=== PATIENT | female | born 1940 | race Caucasian/White ===

== ENCOUNTER 2017-08-30 05:31 | Day surgery (SDC) | payer OTHER, BC ==
[~2017-08-30] VITALS: Ht 157.5 cm; Wt 52.2 kg
--- NOTE | ~2017-08-30 | O ---
[facility] [place] [address] OPERATIVE REPORT Name: DAMASO SWEENEY Room #: [facility]..#: [id number] Admission: 08/30/17 Attend Phys: Yazan Alexander MD Discharge: 08/30/17 Date of : 38 Report #: [id number] THIS REPORT FOR: //name// CC: Zhao Alexander DATE OF SERVICE: 08/30/2017 PREOPERATIVE DIAGNOSIS: Lesion of left lower lid. POSTOPERATIVE DIAGNOSIS: Lesion of left lower lid. PROCEDURE: Excision of lesion of left lower lid with frozen sections and myocutaneous flap repair of full thickness defect. SURGEON: Yazan Alexander M.D. MACHINIST SUPERVISOR OUTSIDE: None. ANESTHESIA: MAC. COMPLICATIONS: None. INDICATIONS FOR SURGERY: This pleasant 77-year-old woman has 2 different sites in her left lower lid that appears suspicious for being frankly neoplastic. The more medially base lesion is right on the eyelid margin and is associated with madarosis. The other lesion is 5-6 mm below this and is primarily located epidermally. She presents today for excision of the lesions with frozen sections and subsequent repair of that defect. Informed consent was obtained to include but not limit to the potential risk for loss of vision, bleeding, infection, failure to improve the problem, the potential need for further surgery or treatment. DESCRIPTION OF PROCEDURE: The patient was taken to the operating room where 2% Xylocaine with epinephrine mixed with equal parts of 0.75% Marcaine with Wydase was administered transcutaneously and transconjunctivally to the left lower lid, the left cheek, the left medial canthus and the left lateral canthus. The patient was subsequently prepped and draped in the usual sterile fashion. A fine tip skin marking pen was then utilized to outline a pentagonal wedge resection in the lateral left lower lid. The incisions were then made perpendicularly across the eyelid margin and drawn down to a point in the premalar tissues. This specimen was then oriented on a drawing for the waiting pathologist. Hemostasis was then achieved with diligent pinpoint monopolar cautery. The pathologist snap froze that specimen examining the medial and lateral margins en face. She found that the lesion laterally based she felt was [address] [address] OPERATIVE REPORT Name: DAMASO SWEENEY Room #: [facility].#: [id number] Admission: 08/30/17 Attend Phys: Yazan Alexander MD Discharge: 08/30/17 Date of : 38 Report #: [id number] most likely inflammatory not frankly neoplastic. She did feel that the lesion that was more medial placed on the lid margin itself was more likely to be an invasive neoplasm. An additional 2 mm of tissue was then taken over the medial aspect of the lid and drawn down to a point in the premalar tissues. The specimen was then oriented on a drawing for the waiting pathologist. Hemostasis was achieved in the field with monopolar cautery. The pathologist returned that the previously based eyelid margin lesion now appeared to be clear. A myocutaneous flap was then developed rotating from lateral to medial. Hemostasis was then re-achieved. The flap was then advanced and secured with multiple interrupted deep 5-0 Vicryl sutures. The tarsal plate was reapproximated with interrupted 5-0 Vicryl sutures. The eyelid margin was closed with interrupted 7-0 Vicryl sutures. The subcutaneous structures and the skin were then closed with interrupted 7-0 Vicryl sutures deep and then 6-0 plain gut sutures more superficially. The wounds were then cleaned and dressed with erythromycin ophthalmic ointment. The patient subsequently transported to the recovery area having tolerated the procedures well with no anesthetic or operative complications being noted. <ELECTRONICALLY SIGNED> By: Yazan Alexander MD 09/08/17 [id number] Yazan Alexander MD /nt
[~2017-08-30 05:31] MED LIST: ALLOPURINOL 10100 M2 PO; CVS DAILY GUM200 MCG PO; FAMOTIDINE10 MG PO; LOMOTIL TABLET1 EACH PO; LOPRESSOR50 PO; MAGNESIUM OXID250 MG PO; METOPROLOL TART25 MG PO; NORCO 10-325 T1 EACH PO; PEPCID20 MG PO; POTASSIUM CHLO10 MEQ PO; VITAMIN D1000 UNI1 PO
[2017-08-30 12:22] LABS: CALCIUM 9.8 mg/dL (8.5-10.1); POTASSIUM 3.8 mmol/L (3.5-5.1)
[2017-08-30 12:28] LABS: TOTAL BILIRUBIN 1.3 mg/dL (<0.1-1.0); TOTAL PROTEIN 8.2 g/dL (6.4-8.2)
[2017-08-30 14:36] VITALS: BP 149/73
== END 2017-08-30 15:32 | disposition home or self-care (01) ==
LOC: OR 05:31 → TBA 05:33 → OR 09:17
PROVIDERS: Ophthalmology
DX: C44.129 Squamous cell carcinoma of skin of left eyelid, including canthus (principal); L57.0 Actinic keratosis; L85.8 Other specified epidermal thickening; I10 Essential (primary) hypertension; M10.9 Gout, unspecified; K21.9 Gastro-esophageal reflux disease without esophagitis; Z98.0 Intestinal bypass and anastomosis status; Z90.710 Acquired absence of both cervix and uterus; Z98.890 Other specified postprocedural states; Z90.49 Acquired absence of other specified parts of digestive tract; Z85.828 Personal history of other malignant neoplasm of skin; Z98.41 Cataract extraction status, right eye; Z98.42 Cataract extraction status, left eye; Z96.1 Presence of intraocular lens; Z88.8 Allergy status to other drugs, medicaments and biological substances; Z79.899 Other long term (current) drug therapy; Z87.448 Personal history of other diseases of urinary system
CPT/HCPCS: 50010; 50101; 62110; 62850; 70005